=== PATIENT | female | born 1985 ===

== ENCOUNTER 2016-09-20 13:45 | Emergency (ER) | payer OTHER ==
[2016-09-20 13:51] VITALS: BP 124/73; PULSE 80; RESP 18; TEMP 98; O2SAT 98
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
--- NOTE | 2016-09-20 15:53 | RAD ---
PROCEDURE: Cervical Spine Radiographs. HISTORY: Pain. COMPARISON: None. FINDINGS: BONES: No evidence of acute compression fractures no retropulsed fragments. Vertebral bodies exhibit normal stature. DISC SPACES: Disc space heights maintained. Small marginal posterior osteophyte formation noted at the C5-C6 and to a lesser degree C4-C5 and less of the C3-C4 levels. . No significant hypertrophy of the uncovertebral facet joints. SOFT TISSUES: Prevertebral soft tissues grossly unremarkable. OTHER FINDINGS: None. IMPRESSION: No acute fracture seen. Minor multilevel degenerative spondylosis.
== END 2016-09-20 16:13 | disposition home or self-care (01) ==
LOC: H.ER 13:45
DX: S09.90XA Unspecified injury of head, initial encounter (principal); S33.5XXA Sprain of ligaments of lumbar spine, initial encounter; S13.4XXA Sprain of ligaments of cervical spine, initial encounter; V43.52XA Car driver injured in collision with other type car in traffic accident, initial encounter; Y92.410 Unspecified street and highway as the place of occurrence of the external cause

== ENCOUNTER 2017-03-23 20:08 | Emergency (ER) | payer OTHER ==
[2017-03-23 20:39] VITALS: BP 133/70; PULSE 71; RESP 16; O2SAT 98
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
--- NOTE | 2017-03-24 09:19 | RAD ---
PROCEDURE: Cervical Spine Radiographs. HISTORY: Pain. COMPARISON: None. FINDINGS: BONES: Straightening of the normal lordosis. No fracture. Dens Intact. DISC SPACES: Normal. SOFT TISSUES: Normal. No prevertebral soft tissue swelling. OTHER FINDINGS: None. IMPRESSION: Straightening of the normal lordosis may be related to positioning/spasm. Otherwise, unremarkable cervical spine radiographs.
== END 2017-03-23 22:41 | disposition home or self-care (01) ==
LOC: H.ER 20:08
DX: S13.4XXA Sprain of ligaments of cervical spine, initial encounter (principal); V43.52XA Car driver injured in collision with other type car in traffic accident, initial encounter; Y92.410 Unspecified street and highway as the place of occurrence of the external cause